=== PATIENT | female | born 1990 ===

== ENCOUNTER 2017-07-10 14:10 | Emergency (ER) | payer MEDICAID, OTHER ==
[2017-07-10 14:18] VITALS: BMI 44.4
[2017-07-10 14:19] VITALS: RESP 18; O2SAT 98
[2017-07-10 15:53] LABS: RBC URINE 6660 /hpf (0-3); URINE BILIRUBIN NEGATIVE (NEGATIVE); URINE BLOOD 2+ (NEGATIVE); URINE GLUCOSE (UA) NORMAL (Normal); URINE KETONE NEGATIVE (NEGATIVE); URINE LEUKOCYTE ESTERASE NEG Leu/uL (Negative); URINE PROTEIN 2+ mg/dL (NEGATIVE); URINE UROBILINOGEN NORMAL mg/dL (0.2-1.0); WBC URINE 8 /hpf (0-5)
[2017-07-10 15:56] LABS: URINE COLOR RED (YELLOW)
[2017-07-10 17:07] VITALS: BP 136/87; PULSE 79; TEMP 98.3
--- NOTE | 2017-07-10 17:16 | C.PDOC ---
History Of Present Illness 26 y/o female, with past medical history of PCOS, presents to emergency department with complaint of heavy vaginal bleeding and cramping. Patient states she was placed on OCP's by PMD in May, with LMP 06/11/17. Patient states she started spotting and cramping in the following days, progressively worsening to 10/10 pelvic cramping. She notes that she has tried Tylenol and Midol with no relief. Also was given Tramadol by PMD with no relief. Patient reports that she passed large clot in the shower today, prompting visit. Patient also reports associated nausea and diarrhea. Otherwise, denies fever, chills, chest pain, palpitations, cough, shortness of breath, vomiting, dysuria , hematuria, headache, or dizziness. Time Seen by Provider: 07/10/17 16:07 Chief Complaint (Nursing): Female Genitourinary History Per: Patient History/Exam Limitations: no limitations Onset/Duration Of Symptoms: Days Current Symptoms Are (Timing): Still Present Recent travel outside of the [place]: No Past Medical History Reviewed: Historical Data, Nursing Documentation, Vital Signs Vital Signs: Last Vital Signs Temp 98.3 F 07/10/17 17:06 Pulse 79 07/10/17 17:06 Resp 18 07/10/17 14:18 BP 136/87 07/10/17 17:06 Pulse Ox 98 07/10/17 17:15 Family History: States: Unknown Family Hx - Social History Hx Tobacco Use: No Hx Alcohol Use: No Hx Substance Use: No - Immunization History Hx Tetanus Toxoid Vaccination: No Hx Influenza Vaccination: No Hx Pneumococcal Vaccination: No Review Of Systems Except As Marked, All Systems Reviewed And Found Negative. Constitutional: Negative for: Fever, Chills Respiratory: Negative for: Cough, Shortness of Breath Gastrointestinal: Positive for: Nausea, Diarrhea. Negative for: Vomiting Genitourinary: Positive for: Vaginal Bleeding, Pelvic Pain. Negative for: Dysuria, Hematuria Skin: Negative for: Rash Neurological: Negative for: Headache, Dizziness Physical Exam - Physical Exam Appears: Non-toxic, No Acute Distress Skin: Normal Color, Warm, Dry Head: Atraumatic, Normacephalic Oral Mucosa: Moist Chest: Symmetrical Cardiovascular: Rhythm Regular Respiratory: Normal Breath Sounds, No Rales, No Rhonchi, No Wheezing Gastrointestinal/Abdominal: Soft, No Guarding, No Rebound, Other (right sided pelvic tenderness) Back: Normal Inspection Extremity: Normal ROM, Capillary Refill (< 2 sec.) Neurological/Psych: Oriented x3, Normal Speech, Normal Cognition ED Course And Treatment O2 Sat by Pulse Oximetry: 98 (RA) Pulse Ox Interpretation: Normal Medical Decision Making Medical Decision Making: Plan: * Tylenol * Motrin * Zofran * Reassess Progress Notes: Disposition Counseled Patient/Family Regarding: Diagnosis, Need For Followup - Disposition Disposition: HOME/ ROUTINE Disposition Time: 17:14 Condition: STABLE Additional Instructions: 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 I have reviewed the chart and agree that the record accurately reflects my personal performance of the history, physical exam, medical decision making, and the department course for this patient. I have also personally directed, reviewed, and agree with the discharge instructions and disposition.
== END 2017-07-10 17:38 | disposition home or self-care (01) ==
LOC: C.ER 14:10
DX: N92.1 Excessive and frequent menstruation with irregular cycle (principal)

== ENCOUNTER 2017-11-12 09:29 | Emergency (ER) | payer MEDICAID ==
[2017-11-12 09:29] VITALS: BMI 44.4
[2017-11-12 09:55] VITALS: BP 127/83; PULSE 95; RESP 18; TEMP 99; O2SAT 99
[2017-11-12] MEDS ORDERED: Albuterol 0.083% Inhal Sol (2.5 mg/3 mL) UD INH STA (10:48)
--- NOTE | 2017-11-12 10:49 | C.PDOC ---
History Of Present Illness 27 y/o female with PMHx of Asthma presents to ED with complaints of cough for 4 days with associated runny nose and sob . Patient reports losing voice 2 days ago. Patient is speaking in full sentences and denies sick contacts, nausea, vomiting,fever, chills or any other complaints at this time. Chief Complaint (Nursing): Cough, Cold, Congestion History Per: Patient History/Exam Limitations: no limitations Onset/Duration Of Symptoms: Days Current Symptoms Are (Timing): Still Present Associated Symptoms: Cough Past Medical History Vital Signs: Last Vital Signs Temp 99 F 11/12/17 09:52 Pulse 95 H 11/12/17 09:52 Resp 18 11/12/17 09:52 BP 127/83 11/12/17 09:52 Pulse Ox 99 11/12/17 11:22 - Medical History PMH: Denies: Asthma, Chronic Kidney Disease Family History: States: Unknown Family Hx - Social History Hx Tobacco Use: No Hx Alcohol Use: No Hx Substance Use: No - Immunization History Hx Tetanus Toxoid Vaccination: No Hx Influenza Vaccination: No Hx Pneumococcal Vaccination: No Review Of Systems Constitutional: Negative for: Fever, Chills Cardiovascular: Negative for: Chest Pain Respiratory: Positive for: Cough, Shortness of Breath Gastrointestinal: Negative for: Nausea, Vomiting Skin: Negative for: Rash Physical Exam - Physical Exam Appears: Non-toxic, No Acute Distress Skin: Warm, Dry, No Rash Head: Atraumatic, Normacephalic Eye(s): bilateral: Normal Inspection Ear(s): Bilateral: Normal Oral Mucosa: Moist Throat: Normal, No Erythema, No Exudate Neck: Supple Cardiovascular: Rhythm Regular Respiratory: No Rales, Rhonchi (Right side), No Wheezing Gastrointestinal/Abdominal: Soft, No Tenderness, No Guarding, No Rebound Neurological/Psych: Oriented x3 ED Course And Treatment O2 Sat by Pulse Oximetry: 99 (RA) Pulse Ox Interpretation: Normal Medical Decision Making Medical Decision Making: Impression: Influenza Plan: Influenza test, Progress: Pt influenza test (+) Disposition - Disposition Disposition: HOME/ ROUTINE Disposition Time: 15:01 Condition: GOOD Prescriptions: Oseltamivir Phosphate [Tamiflu] 75 mg PO BID #10 capsule Instructions: Influenza (ED) Forms: [employer] [facility] (Yi), Work Excuse Print Language: GERMAN - Clinical Impression Clinical Impression: Influenza-like illness - Scribe Statement The provider has reviewed the documentation as recorded by the Oliveribsarabjit Curiel All medical record entries made by the Oliveribsarabjit were at my direction and personally dictated by me. I have reviewed the chart and agree that the record accurately reflects my personal performance of the history, physical exam, medical decision making, and the department course for this patient. I have also personally directed, reviewed, and agree with the discharge instructions and disposition.
[2017-11-12] MEDS ORDERED: Albuterol 0.083% Inhal Sol (2.5 mg/3 mL) UD ONE (11:01)
--- NOTE | 2017-11-12 14:26 | RAD ---
HISTORY: sob COMPARISON: Chest x-ray performed 10/29/16 TECHNIQUE: Chest PA and lateral FINDINGS: Examination limited by habitus. LUNGS: No focal consolidation. Please note that chest x-ray has limited sensitivity for the detection of pulmonary masses. PLEURA: No significant pleural effusion identified. No definite pneumothorax . CARDIOVASCULAR: The cardiomediastinal silhouette appears within normal limits of size. OSSEOUS STRUCTURES: No acute osseous abnormality identified. VISUALIZED UPPER ABDOMEN: Unremarkable. OTHER FINDINGS: None. IMPRESSION: No focal consolidation, significant pleural effusion, or definite pneumothorax identified.
== END 2017-11-12 11:32 | disposition home or self-care (01) ==
LOC: C.ER 09:29
DX: J11.1 Influenza due to unidentified influenza virus with other respiratory manifestations (principal)

== ENCOUNTER 2018-02-18 06:14 | Emergency (ER) | payer MEDICAID ==
[2018-02-18 06:14] VITALS: BMI 44.4
[2018-02-18 07:23] VITALS: BP 132/77; PULSE 82; RESP 16; TEMP 98.6
[2018-02-18 07:27] VITALS: O2SAT 97
--- NOTE | 2018-02-18 07:27 | C.PDOC ---
History Of Present Illness 27-year-old female, presents to the emergency department with complaints of mid- sternal chest pain ongoing intermittently for the past few months. Patient has an appointment with rn surgical outpatient. Denies shortness of breath, recent travel, nausea/vomiting, fever or chills. Time Seen by Provider: 02/18/18 07:15 Chief Complaint (Nursing): Chest Pain History Per: Patient History/Exam Limitations: no limitations Past Medical History Reviewed: Historical Data, Nursing Documentation, Vital Signs Vital Signs: Last Vital Signs Temp 98.6 F 02/18/18 07:18 Pulse 82 02/18/18 07:18 Resp 16 02/18/18 07:18 BP 132/77 02/18/18 07:18 Pulse Ox 97 02/18/18 07:29 - Medical History PMH: Denies: Asthma, Chronic Kidney Disease Family History: States: No Known Family Hx - Social History Hx Tobacco Use: No Hx Alcohol Use: No Hx Substance Use: No - Immunization History Hx Tetanus Toxoid Vaccination: No Hx Influenza Vaccination: No Hx Pneumococcal Vaccination: No Review Of Systems Constitutional: Negative for: Fever Cardiovascular: Positive for: Chest Pain Respiratory: Negative for: Shortness of Breath Gastrointestinal: Negative for: Vomiting, Abdominal Pain Musculoskeletal: Negative for: Back Pain Neurological: Negative for: Weakness, Numbness, Headache, Dizziness Physical Exam - Physical Exam Appears: Non-toxic, No Acute Distress Skin: Normal Color, Warm, Dry, No Rash Head: Normacephalic Eye(s): bilateral: PERRL Nose: Normal Oral Mucosa: Moist Lips: Normal Appearing Neck: Normal ROM Chest: Symmetrical, Tenderness (mild, left-sided. Reproducible) Cardiovascular: Rhythm Regular, No Murmur Respiratory: Normal Breath Sounds, No Accessory Muscle Use Extremity: Normal ROM, No Deformity, No Swelling Neurological/Psych: Oriented x3, Normal Speech ED Course And Treatment ECG: Interpreted By Me, Viewed By Me ECG Rhythm: Sinus Rhythm ECG Interpretation: No Acute Changes Rate From EC O2 Sat by Pulse Oximetry: 97 (RA) Pulse Ox Interpretation: Normal Medical Decision Making Medical Decision Making: Impression Chest pain, pt is PERC negative Plan: * CXR * Reassess and Disposition * * cxr neg as read by me. pt reassese on phone in nad. atypical pain has outpt cards appoint, vitals stable, no h/o of anemia, perc neg. Disposition - Disposition Referrals: Agusto Neumann MD [Staff Provider] - Disposition: HOME/ ROUTINE Disposition Time: 08:00 Condition: STABLE Additional Instructions: please follow up with your rn surgical return to er with worsening symptoms or concerns. Instructions: Chest Pain Forms: [facility] (Maltese) - Clinical Impression Clinical Impression: Chest pain - Scribe Statement The provider has reviewed the documentation as recorded by the Scribe (Shaquille Shi) All medical record entries made by the Scribe were at my direction and personally dictated by me. I have reviewed the chart and agree that the record accurately reflects my personal performance of the history, physical exam, medical decision making, and the department course for this patient. I have also personally directed, reviewed, and agree with the discharge instructions and disposition.
--- NOTE | 2018-02-18 08:27 | RAD ---
HISTORY: cp COMPARISON: 11/12/2017 TECHNIQUE: Chest PA and lateral FINDINGS: LUNGS: No active pulmonary disease. PLEURA: No significant pleural effusion identified. No pneumothorax apparent. CARDIOVASCULAR: Normal. OSSEOUS STRUCTURES: No significant abnormalities. VISUALIZED UPPER ABDOMEN: Normal. OTHER FINDINGS: None. IMPRESSION: No active disease.
--- NOTE | 2018-02-18 16:46 | CARD ---
APPROVED REPORT EKG Measurement Heart [id number] <Conclusion> Normal sinus rhythm Minimal voltage criteria for LVH, may be normal variant Borderline ECG
== END 2018-02-18 08:10 | disposition home or self-care (01) ==
LOC: C.ER 06:14
DX: R07.9 Chest pain, unspecified (principal)